=== PATIENT | male | born 1945 ===

== ENCOUNTER 2024-12-02 15:19 | Outpatient (AMB) | payer MEDICARE, MEDICAID, SELFPAY ==
--- NOTE | 2024-12-02 15:23 | A.OFFVIS_ITS ---
Intake Visit Reasons: 6 Months Allergies No Known Allergies Allergy (Verified 11/30/24 11:41) HPI Comments Details: 79 years old man with hypertension and dementia. Daughter reported that he anxiety was still an issue. No hallucinations or delusions. There was no significant change in walking. Sleep was good. [facility] Medical History (Updated 12/02/24 @ 15:28 by Alejo Ward MD) Multifactorial dementia Alzheimer disease Hypertension Cerebral microvascular disease Review of Systems Const Details: Feeling anxious. Physical Exam Neuro Other: He is alert and awake with normal spontaneity of speech fluency comprehension and anxious affect. Gait is ok. Assessment & Plan Assessment & Plan (1) Alzheimer disease: Comment: Meds tried: donepezil (nightmares), Exelon patch (rash) MRI brain WO at [facility] in May 2020: minimal atrophy, mild MVD. Code(s): G30.9 - Alzheimer's disease, unspecified; F02.80 - Dementia in other diseases classified elsewhere, unspecified severity, without behavioral disturbance, psychotic disturbance, mood disturbance, and anxiety Category: Medical Plan Impression: Dementia with behavioral symptoms primarily anxiety and probably of Alzheimer type Recommendations: Increase memantine to 10 mg twice a day Increase sertraline to 50 mg in the morning Medications: New sertraline 50 mg PO DAILY 90 tabs 1RF memantine (Namenda) 10 mg PO BID 180 tabs 1RF Discontinued memantine Discontinued Reason: Doctor's Order 5 mg PO BID 180 tabs 0RF Coding Level of Care Code Est Pt Level 4 (97922) Diagnoses Alzheimer disease G30.9; F02.80
--- OUTSIDE RECORDS SUMMARY | 2024-12-02 19:27 | XMS_ITS | Data Portability ---
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 Fiberoptic examination today did not reveal any gross or abnormalities in the pharyngeal yarbrough. Fortunately he is also asymptomatic. Given his vascular dementia, Alzheimer's, diabetes he is not a good surgery candidate but would still like to know if there is any lesion present and how it is behaving. We may share results through the portal [employer] Not available 12/08/2023 13:18:38 Plan of Treatment Reminders Order Date Submit Date Provider Last Modified By Organization Details Last Modified Time Details Appointments None recorded. Lab None recorded. Referral None recorded. Procedures None recorded. Surgeries None recorded. Imaging MRI, neck, w/wo contrast - eval left prestyloid mass 2023 024 [facility] ([facility]), [address], [place], [address], 17:09:50 Medication Orders None recorded. Patient TargetsNo targets recorded. Patient InstructionsNo instructions recorded. Reason for Referral None Reported. Results Created Date Observation Date Name Description Value Unit Range Abnormal Flag Note LastModifiedBy Organization Detail LastModifiedTime 12/24/1912/22/2023 MRI, head + neck + orbit s, w/wo contr ast [facility] Access ion Number : [id number] Patien t Name: Luis France Medica l Record Number : [id number] Date of : 1945 Date of Exam: 2023 Referr ing Physic cullen: Jovani Ruiz Ear Nose [address] [place] [address] Exam: MR Orbits , Face, Neck (C-/C+ ) CPT 76936 Room Descri ption: [facility] Verio 3.0T MRI of the soft tissue s neck withou t and with contra st. HISTOR Y: Follow -up paraph arynge al mass. [facility] . FINDIN GS: Again demons trated the small lobula urszula hypoin tense T1 and hyperi ntense T2 mass within the left paraph arynge al space measur ing approx imatel y 1.5 x 1.3 x 1 cm in size. It shows diffus e enhanc ement after contra st. This is simila r to prior study consid ering the differ ences in techni ques. Again the etiolo gy is uncert ain. Contin ue follow -up is sugges urszula. Bilate ral paroti d glands and subman dibula r glands show no focal abnorm alitie s or abnorm al enhanc ement. The thyroi d lobes are normal and symmet rical. The pharyn x and larynx appear unrema rkable . The airway is patent . There is no lympha denopa thy throug hout the soft tissue s neck. Postco ntrast images show no abnorm al enhanc ement. There are normal flow-v oids within the visual ized major neck arteri es. The visual ized brain shows genera lized age relate d volume loss.. There are small mucus retent ion cyst within the inferi or maxill adrian sinuse s bilate rally. IMPRES CESAR: Stable appear ance of the small lobula urszula hyperi ntense T2 nodule with diffus e enhanc ement in the left paraph arynge al space since prior study. Its underl molly is uncert ain. Please correl ate clinic ally. Contin ued follow -up is sugges urszula. Electr onical ly Signed By: [facility] [address], [place], [address], 12/26/2023 19:26:44 Result Notes Documentation Provider Name and Address Organization Details Recorded Time Mri, Head + Neck + Orbits, W/wo Contrast : [facility] Accession Number: [id number] Patient Name: Marisol Calvillo Date of : 1945 Date of Exam: 12-22-2023 Referring Physician: Jovani Ruiz Nose [address] [facility] [address] [place] [address] Exam: MR Orbits, Face, Neck (C-/C+) CPT 50552 [facility] soft tissues neck without and with contrast. HISTORY: Follow-up parapharyngeal mass. Comparison: 06/03/2022 from the [facility] FINDINGS: Again demonstrated the small lobulated hypointense T1 and hyperintense T2 mass within the left parapharyngeal space measuring approximately 1.5 x 1.3 x 1 cm in size. It shows diffuse enhancement after contrast. This is similar to prior study considering the differences in techniques. Again the etiology is uncertain. Continue follow-up is suggested. Bilateral parotid glands and submandibular glands show no focal abnormalities or abnormal enhancement. The thyroid lobes are normal and symmetrical. The pharynx and larynx appear unremarkable. The airway is patent. There is no lymphadenopathy throughout the soft tissues neck. Postcontrast images show no abnormal enhancement. There are normal flow-voids within the visualized major neck arteries. The visualized brain shows generalized age related volume loss.. There are small mucus retention cyst within the inferior maxillary sinuses bilaterally. IMPRESSION: Stable appearance of the small lobulated hyperintense T2 nodule with diffuse enhancement in the left parapharyngeal space since prior study. Its underlying is uncertain. Please correlate clinically. Continued follow-up is suggested. 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 Procedures Surgical History Date Name Laterality Status Provider Name and Address Organization Details Recorded Time 12/08/2023 FOL_DP completed JOVANI RUIZ MD [address] [place] [address],[place] [address], [place], [address], [facility] 12/05/2023 21:04:24 Imaging Results None recorded. Procedure Notes None recorded. Medical Equipment None Reported. Medications Name Sig Start Date Stop Date Status Note LastModified by Organization Details LastModified Time metformin 500 mg tablet 12/07 completed Medicati on ID: [id number] B rand Name: metformi n Send Method: E-Prescr ibed Sub s Allowed: subs OK Medic ationGen ericName : metformi n Not Available Not Available Not Available lisinopri l 20 mg tablet TAKE 1 TABLET BY MOUTH EVERY DAY active Not Available Not Available No t Available simvastat in 10 mg tablet Take 1 tablet every day by oral route. active Not Available Not Available No t Available diltiazem ER 240 mg capsule,2 4 hr,extend ed release Take 1 capsule every day by oral route. active Not Available Not Available No t Available fluocinon sarah 0.05 % topical ointment APPLY TOPICALL Y TO THE AFFECTED AREA TWICE DAILY active Not Available Not Available No t Available triamcino lone acetonide 0.025 % topical cream 12/07 completed Medicati on ID: [id number] B rand Name: triamcin olone acetonid e Send Method: E-Prescr ibed Sub s Allowed: subs OK Medic ationGen ericName : triamcin olone acetonid e Not Available Not Available Not Available tamsulosi n 0.4 mg capsule TAKE 1 CAPSULE BY MOUTH EVERY DAY AT BEDTIME 12/07 completed Not Available Not Available Not Available ferrous sulfate 325 mg (65 mg iron) tablet Take 1 tablet every day by oral route. active Not Available Not Available No t Available lisinopri l 20 mg-hydroc hlorothia zide 25 mg tablet TAKE 1 TABLET BY MOUTH DAILY 12/07 completed Not Available Not Available Not Available senna 187 mg tablet Take by oral route. active Not Available Not Available No t Available finasteri de 5 mg tablet TAKE 1 TABLET BY MOUTH EVERY DAY active Not Available Not Available No t Available verapamil ER 240 mg 24 hr capsule,e xtended release TAKE 1 CAPSULE BY MOUTH AT BEDTIME 12/07 completed Not Available Not Available Not Available DILT-XR 240 mg capsule, extended release TAKE 1 CAPSULE BY MOUTH DAILY 12/07 completed Not Available Not Available Not Available aspirin active Not Available Not Avail able Not Available tamsulosi n active Not Available Not Available Not Available Vitals Date Recorded Body height Body mass index (BMI) Body weight Provider Name and Address Organization Details Last Updated DateTime 12/08/2023 165.1 cm 25.6 kg/m2 21042.22 g Norma Anne [place] - [facility] 12/08/2023 13:07:10 Social History None recorded. Functional Status None recorded. Mental Status None recorded. Family History Nothing Reported. Medical History No medical history recorded. Past Encounters Encounter ID Performer Location Encounter Start Date Encounter Closed Date Diagnosis/Indication Diagnosis SNOMED-CT Code Diagnosis ICD10 Code Diagnosis IMO Codes Diagnosis Note [id number] OJVANI RUIZ MD [facility] [address] [place] [address] 12/08/2023 12:40:14 12/08/2023 13:18:49 Mass of parapharyngeal space [id number] R22.1 Health Concerns Section Related Observation LastModified by Organization Detai ls LastModified Time None Recorded Concern Status LastModified by Organization Details LastModified Time None Recorded Advance Directives Directive None Recorded Payers Insurance Date Sequence Insurance Name Policy Number Policy Irby Covered Member ID Irby Member ID Guarantor Name 12/08/2023 2 [place] Marisol Victor [id number] Marisol Victor 12/08/2023 1 [place] [facility] Marisol Victor [id number] Marisol Victor Notes Date Note Type Note Provider Name and Address Organization Details Recorded Time 12/08/2023 text/html ROS as noted in the HPI daughter SpanishLeft prestyloid lesionno new sx of dysphagiano hemoptysis, no pain 06/10/22 Dr Sanchez consult - was offered surgery vs observation. surveillance with repeat MRI skull base in 1-2yrs Prior visit 01/15/2022 Dr. Price, parapharyngeal mass offered referral to Dr. 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
--- OUTSIDE RECORDS SUMMARY | 2024-12-02 19:27 | XMS_ITS ---
Author Name [facility] Organization Unknown Care Team Organization Name Specialty Phone Email Start Date End Da te [facility] ASIA XIONG Primary Care 08/16/2022 4
== END 2024-12-02 15:30 | disposition home or self-care (01) ==
LOC: HO.HSM 15:19
PROVIDERS: PCP Internal Medicine; Referring Provider Internal Medicine; Visit Provider Psychiatry & Neurology Neurology
DX: G30.9 Alzheimer's disease, unspecified (principal); F02.80 Dementia in other diseases classified elsewhere, unspecified severity, without behavioral disturbance, psychotic disturbance, mood disturbance, and anxiety
CPT/HCPCS: 99214

== ENCOUNTER → 2024-12-02 15:19 | Outpatient (BNVA) | payer MEDICARE, MEDICAID, SELFPAY | PROVIDERS: PCP Internal Medicine; Referring Provider Internal Medicine; Visit Provider Psychiatry & Neurology Neurology | DX: G30.9 Alzheimer's disease, unspecified (principal); F02.80 Dementia in other diseases classified elsewhere, unspecified severity, without behavioral disturbance, psychotic disturbance, mood disturbance, and anxiety; I10 Essential (primary) hypertension; F41.9 Anxiety disorder, unspecified | CPT/HCPCS: 99212 ==